=== PATIENT | female | born 1995 | race Caucasian/White ===

== ENCOUNTER → 2016-04-19 | Outpatient (CLI) | payer OTHER ==
[~2016-04-19] MED LIST: AC325T PO; CLC500CT PO; CODE-54 PO; ESCT10T PO; IBUP-792; Ibuprofen PO; MULT-963 PO; NAPR-243 PO; NITR100C3 PO; ONDA8TAB9 PO; PRD20T PO; PREN1TAB71 PO; SUMA25TA3 PO
--- OUTSIDE RECORDS SUMMARY | 2016-04-19 13:17 | XMS REPORT | Continuity of Care Document ---
Author Author [facility] Organization [facility] Address Unknown Phone Unavailable Care Team Providers Care Manager Cosmetics Name Role Phone RACHANA MICHELE DO PCP Insurance Providers Payer Name Policy Number Subscriber Name Relationship [employer] [id number] Dominga Garcia 18 Self / Same As Patient Advance Directives Directive Response Recorded Date/Time Advance Directives No 08/06/15 10:29pm Health Care Power of Oleomargarine Maker No 08/06/15 10:29pm Organ Donor Yes 08/06/15 10:29pm Resuscitation Status Full Code 08/06/15 10:29pm Chief Complaint and Reason for Visit Chief Complaint Ear Problems Reason for Visit Acute headache Facial pain Problems Active Problems Medical Problem Onset Date Status Acute headache Unknown Acute Facial pain Unknown Acute Medications Current Home Medications Medication Dose Units Route Directions Days/Qty Instructions Start Date Sumatriptan Succinate 25 Mg 25 Mg Oral As Directed as needed for Headache 10 Take one at onset of headache. Repeat in 2 hours if not improved. Take only 2 per day 08/07/15 Prednisone 20 Mg 20 Mg Oral Twice A Day 6 08/07/15 Past Home Medications Medication Directions Ordered Status Ibuprofen 400 Mg Tablet, 02/13/09 Discontinued Naproxen 500 Mg Tablet, 1 Each Oral Three Times A Day And Prn 09/29/10 Discontinued Acetaminophen/Codeine Phosphate 1 Tab Tablet, 1 - 2 Tab Oral Q 4-6 Hours as needed 09/29/10 Discontinued Escitalopram Oxalate 10 Mg Tablet, 1 Each Oral Daily 02/14/12 Discontinued Multivitamin 1 Each Tablet, 1 Each Oral 02/14/12 Discontinued Nitrofurantoin Macrocrystals 100 Mg Capsule, 100 Mg Oral Twice A Day Discontinued Ondansetron Hcl 8 Mg/Tab Tab.rapdis, 8 Mg Oral As Needed 02/14/12 Discontinued Vit/Fe Fumarate/Fa 1 Each Tablet, 1 Each Oral Daily 09/15/13 Discontinued Acetaminophen 325 Mg Tab, 325-650 Mg Oral Q 4-6 Hours for Pain 10/21/13 Discontinued Calcium Carbonate 500 Mg Tab.chew, 500-1000 Mg Oral Q 4-6 Hours for Indigestion 10/21/13 Discontinued [Ibuprofen] 600 Mg Tab, 600 Mg Oral Every 6 Hours as needed for Cramps Discontinued Social History Social History Problem Response Recorded Date/Time Alcohol Use Denies Use 08/06/2015 10:29pm Recreational Drug Use No 08/06/2015 10:29pm Recent Foreign Travel No 10/23/2013 10:38am Recent Infectious Disease Exposure No 10/23/2013 10:38am Hospitalization with Isolation Denies 10/25/2013 11:36pm Sexually Transmitted Disease Y Hx chlamydia approx 201108/06/2015 10:29pm Smoking Status Current Everyday Smoker 08/06/2015 10:29pm Do you dip or chew tobacco? No 08/06/2015 10:29pm Query Response Start Date Stop Date Smoking Status Current Everyday Smoker Hospital Discharge Instructions No hospital discharge instructions. Plan of Care Discharge Date 08/07/15 12:54am Disposition 01 HOME, SELF-CARE Condition at Discharge Improved Instructions/Education Provided Cluster Headache (ED) Trigeminal Neuralgia (ED) Prescriptions See Medication Section Referrals RACHANA MICHELE DO - Primary Care Physician Additional Instructions/Education The exact cause of your headache is uncertain at this time but it may be related to cluster headache, migraine, or trigeminal neuralgia. Follow-up with Dr. Michele as soon as possible. If headache is persistent you may need further workup which might include imaging of the head and/or consultation with neurology. If headache rebounds, you may use Imitrex as prescribed and start the prednisone prescription. Complete your antibiotics as prescribed. If symptoms worsen return to care. All discharge instructions reviewed with patient and/or family. Voiced understanding. Functional Status No functional status results. Allergies, Adverse Reactions, Alerts No known allergies. Immunizations No immunization records. Vital Signs Acute Vital Signs Vital Response Date/Time Temperature (Fahrenheit) 98 degrees F (97.6 - 99.5) 08/06/2015 10:29pm Temperature (Calculated Celsius) 36.6696 degrees C (36.4 - 37.5) 08/06/2015 10:29pm Temperature Source Temporal 08/06/2015 10:29pm Pulse Rate (adult) 86 bpm (60 - 90) 08/06/2015 10:29pm Respiratory Rate 16 bpm (12 - 24) 08/06/2015 10:29pm O2 Sat by Pulse Oximetry 99 % (88 - 100) 08/06/2015 10:29pm Blood Pressure 130/75 mm Hg 08/06/2015 10:29pm Blood Pressure Mean 93 mm Hg 08/06/2015 10:29pm Pain Pain Intensity 7 08/07/2015 12:15am Height (Feet) 5 feet 08/06/2015 10:29pm Height (Inches) 9 inches 08/06/2015 10:29pm Height (Calculated Centimeters) 175.792805 cm 08/06/2015 10:29pm Weight (Pounds) 230 pounds 08/06/2015 10:29pm Weight (Ounces) 4.0 oz 08/06/2015 10:29pm Weight (Calculated Grams) 02427.287 gm 08/06/2015 10:29pm Weight (Calculated Kilograms) 104.531499 kilograms 08/06/2015 10:29pm Calculated BMI 26.15 08/06/2015 10:29pm Results No known relevant diagnostic tests, laboratory data and/or discharge summary. Procedures No known history of procedures. Encounters Encounter Location Arrival/Admit Date Discharge/Depart Date Attending Provider Departed Emergency Room [facility] 08/06/15 10:07pm 12/14 12:54am DARCIE MCCLOUD MD Recent Diagnosis
== END ==
LOC: LAB 13:13
PROVIDERS: ATTEND Nurse Practitioner Family
DX: R50.9 Fever, unspecified (principal); R05 Cough; J02.8 Acute pharyngitis due to other specified organisms

== ENCOUNTER → 2016-07-23 | Outpatient (CLI) | payer OTHER ==
--- NOTE | 2016-07-23 16:28 | Diagnostic Imaging Report ---
EXAM: CERVICAL SPINE 3 VIEWS OR LESS INDICATION: Neck pain radiating into bilateral upper extremities. COMPARISON: None. FINDINGS: Straightening of the normal cervical lordosis may be positional. Vertebral body heights are maintained. No substantial degenerative endplate changes or facet arthropathy. Normal soft tissue shadows. No fractures. IMPRESSION: Negative cervical spine radiographs. Dictated by: Dictated on workstation # [id number]
== END ==
LOC: RAD 16:02
PROVIDERS: ATTEND Family Medicine
DX: M54.2 Cervicalgia (principal)
CPT/HCPCS: 72040

== ENCOUNTER 2016-08-11 20:22 | Emergency (ER) | payer OTHER ==
[~2016-08-11] VITALS: Ht 175.3 cm; Wt 108.1 kg
--- NOTE | 2016-08-11 20:41 | ED General ---
General Chief Complaint: Allergic Reaction Stated Complaint: BODY SWELLING HIVES BODY ACHE Nursing Triage Note: c/o hives, patient reports getting steroid shots for this when this started, patient reports pulling a tick off her a couple weeks ago. patient also reports general body aches Nursing Sepsis Screen: No Definite Risk Source of Information: Patient Exam Limitations: No Limitations History of Present Illness Time Seen by Provider: 20:38 Initial Comments To ER with 3-4 days of a diffuse rash, malaise and joint pains. She was seen by [facility] on the day that this began which was 08/08/16 and was given an injection of 2 steroids. Rash was her initial presenting symptom there and was itchy at that time. She states that she went home, improved for a day or so and then the rash recurred. It slightly itchy in her legs but not terribly itchy. She does report diffuse body ache specifically in her joints and most noticeably in the TMJ bilaterally. No fevers. No history of this. No new medications. No recent illnesses, cough, GI symptoms, or sore throat. . She states that she did pull a tick off of her that was stuck to left abdomen about 3 weeks ago. Timing/Duration: 2-3 Days Severity: Moderate Associated Systoms: No Chest Pain, No Cough, No Diaphoresis, No Fever/Chills, Malaise Allergies and Home Medications Allergies Coded Allergies: No Known Drug Allergies (Unverified , 02/13/09) Home Medications No Active Prescriptions or Reported Meds Constitutional: see HPI, No chills, No fever EENTM: see HPI Respiratory: no symptoms reported, No cough Cardiovascular: no symptoms reported Genitourinary: no symptoms reported Musculoskeletal: see HPI, joint pain, No joint swelling Skin: see HPI, rash Psychiatric/Neurological: No Symptoms Reported Hematologic/Lymphatic: No Symptoms Reported Past Iqcbclf-Tbqwvl-Fldpld Hx Patient Social History Alcohol Use: Denies Use Recreational Drug Use: No Smoking Status: Current Everyday Smoker Recent Foreign Travel: No Contact w/Someone Who Travel: No Recent Infectious Disease Expo: No Recent Hopitalizations: No Immunizations Up To Date Tetanus Booster (TDap): More than 5yrs Seasonal Allergies Seasonal Allergies: No Surgeries HX Surgeries: No Surgeries: Tonsillectomy Respiratory Hx Respiratory Disorders: No Cardiovascular Hx Cardiac Disorders: No Neurological Hx Neurological Disorders: No Reproductive System Hx Reproductive Disorders: No (IMPLANTED B.C.) Sexually Transmitted Disease: Yes (Hx chlamydia approx 2011) Female Reproductive Disorders: Denies Genitourinary Hx Genitourinary Disorders: No Gastrointestinal Hx Gastrointestinal Disorders: No Musculoskeletal Hx Musculoskeletal Disorders: Yes ("closed spina bifida") Endocrine Hx Endocrine Disorders: No HEENT HX ENT Disorders: No Cancer Hx Cancer: No Psychosocial Hx Psychiatric Problems: Yes Behavioral Health Disorders: Depression Integumentary HX Skin/Integumentary Disorder: No Blood Transfusions Hx Blood Disorders: No Adverse Reaction to a Blood Tr: No Family Medical History Significant Family History: No Pertinent Family Hx Family Medial History: Alcoholism 19 FATHER (PGM, PGF) 19 MOTHER (Mother's family) Cancer Cancer of colon 19 FATHER (PGF pancreatic, PGM ovarian) Cataract 19 FATHER (PGM) Family history: Arthritis 19 MOTHER Family history: Asthma G8 BROTHER Family history: Osteoporosis 19 MOTHER Family history: Thyroid disorder 19 FATHER (PGM) Headache 19 FATHER (PGF) History of - respiratory disease 19 MOTHER (MGM COPD) History of drug abuse 19 MOTHER (Mother's side) Hypercholesterolemia 19 MOTHER Malignant neoplasm of lung 19 MOTHER (MGF) Psychotic disorder 19 FATHER (PGF) Stroke 19 FATHER (PGF) No Family History of: Abdominal aortic aneurysm Calvin's disease Aphasia Chest pain Congenital heart disease Congestive heart failure Cystic fibrosis Dementia Dysphagia Family history: Allergy Family history: Alzheimer's disease Family history: Breast disease Family history: Cardiovascular disease Family history: Coronary thrombosis Family history: Diabetes mellitus Family history: Gastrointestinal disease Family history: Glaucoma Family history: Hypertension Hearing loss Heart disease Hereditary disease History of - anemia History of - disorder Human immunodeficiency virus (HIV) seropositivity Infertile Kidney disease Myocardial infarction Parkinson's disease Prostate cancer Seizure disorder Tuberculosis Visual impairment Physical Exam Vital Signs Vital Sign - Last 12Hours 08/11/16 20:31 Temp 98.2 Pulse 93 Resp 18 B/P (MAP) 116/75 Pulse Ox 98 Capillary Refill : Less Than 3 Seconds General Appearance: No Apparent Distress, WD/WN Eyes: Bilateral Eye EOMI, Bilateral Eye Normal Inspection, Bilateral Eye PERRL HEENT: PERRL/EOMI, TMs Normal, Normal ENT Inspection, Other (No conjunctivitis. Able to flex chin to chest--no nuchal rigidity) Neck: Full Range of Motion, Normal Inspection Respiratory: Normal Breath Sounds, No Accessory Muscle Use, No Respiratory Distress Cardiovascular: Regular Rate, Rhythm, Normal Peripheral Pulses Gastrointestinal: Normal Bowel Sounds, Non Tender, Soft Extremity: Normal Capillary Refill, Normal Range of Motion Neurologic/Psychiatric: Alert, Oriented x3, Normal Mood/Affect Skin: Rash (diffuse maculopapular blanchable rash to the upper and lower extremities. She does have some degree of this on her torso but not as much as on the extremities (sparing the palms and soles). [id number] on the palms of her hands and no intraoral lesions seen.There are no vesicles or petechaie. ) Laceration Repair : Suture Size: 3-0 Progress/Results/Core Measures Results/Orders Lab Results Laboratory Tests Test 08/11/16 20:30 Range/Units White Blood Count 11.5 H 4.3-11.0 10^3/uL Red Blood Count 4.90 4.35-5.85 10^6/uL Hemoglobin 14.3 11.5-16.0 G/DL Hematocrit 43 35-52 % Mean Corpuscular Volume 88 80-99 FL Mean Corpuscular Hemoglobin 29 25-34 PG Mean Corpuscular Hemoglobin Concent 33 32-36 G/DL Red Cell Distribution Width 13.6 10.0-14.5 % Platelet Count 189 130-400 10^3/uL Mean Platelet Volume 11.3 H 7.4-10.4 FL Neutrophils (%) (Auto) 80 H 42-75 % Lymphocytes (%) (Auto) 15 12-44 % Monocytes (%) (Auto) 3 0-12 % Eosinophils (%) (Auto) 2 0-10 % Basophils (%) (Auto) 0 0-10 % Neutrophils # (Auto) 9.2 H 1.8-7.8 X 10^3 Lymphocytes # (Auto) 1.7 1.0-4.0 X 10^3 Monocytes # (Auto) 0.3 0.0-1.0 X 10^3 Eosinophils # (Auto) 0.3 0.0-0.3 10^3/uL Basophils # (Auto) 0.0 0.0-0.1 10^3/uL Erythrocyte Sedimentation Rate 2 0-20 MM/HR Sodium Level 140 135-145 MMOL/L Potassium Level 3.8 3.6-5.0 MMOL/L Chloride Level 111 H 98-107 MMOL/L Carbon Dioxide Level 19 L 21-32 MMOL/L Anion Gap 10 5-14 MMOL/L Blood Urea Nitrogen 19 H 7-18 MG/DL Creatinine 0.83 0.60-1.30 MG/DL Estimat Glomerular Filtration Rate > 60 BUN/Creatinine Ratio 23 Glucose Level 116 H 70-105 MG/DL Calcium Level 8.7 8.5-10.1 MG/DL Total Bilirubin 0.3 0.1-1.0 MG/DL Aspartate Amino Transf (AST/SGOT) 19 5-34 U/L Alanine Aminotransferase (ALT/SGPT) 16 0-55 U/L Alkaline Phosphatase 48 40-136 U/L C-Reactive Protein High Sensitivity 3.54 H 0.00-0.50 MG/DL Total Protein 6.0 L 6.4-8.2 G/DL Albumin 4.0 3.2-4.5 G/DL Thyroid Stimulating Hormone (TSH) 2.26 0.35-4.94 UIU/ML Free Thyroxine 0.81 0.70-1.48 NG/DL Serum Test, Qualitative NEGATIVE NEGATIVE My Orders Orders - PRESTON OJEDA APRN Cbc With Automated Diff (08/11/16 20:36) Hs C Reactive Protein (08/11/16 20:36) Erythrocyte Sedimentation Rate (08/11/16 20:36) Ua Culture If Indicated (08/11/16 20:36) Comprehensive Metabolic Panel (08/11/16 20:36) Saline Lock/Iv-Start (08/11/16 20:36) Tick Panel With Lyme Eia (08/11/16 20:36) Methylprednisolone Sod Succ (Solu-Medrol (08/11/16 20:45) Famotidine Injection (Pepcid Injection) (08/11/16 20:45) Ketorolac Injection (Toradol Injection) (08/11/16 20:45) Diphenhydramine Injection (Benadryl Inje (08/11/16 20:45) Ns Iv 500 Ml (Sodium Chloride 0.9%) (08/11/16 20:45) Hcg,Qualitative Serum (08/11/16 20:36) Thyroid Stimulating Hormone (08/11/16 20:36) Free T4 (Free Thyroxine) (08/11/16 20:36) Doxycycline Hyclate Tablet (Vibramycin T (08/11/16 21:30) Medications Given in ED Current Medications Medications Dose Ordered Sig/Yony Route Start Time Stop Time Status Last Admin Dose Admin Diphenhydramine HCl 25 mg ONCE ONCE IVP 08/11/16 20:45 08/11/16 20:46 DC 08/11/16 20:48 25 MG Famotidine 20 mg ONCE ONCE IVP 08/11/16 20:45 08/11/16 20:46 DC 08/11/16 20:48 20 MG Ketorolac Tromethamine 30 mg ONCE ONCE IVP 08/11/16 20:45 08/11/16 20:46 DC 08/11/16 20:48 30 MG Methylprednisolone Sodium Succinate 125 mg ONCE ONCE IVP 08/11/16 20:45 08/11/16 20:46 DC 08/11/16 20:48 125 MG Vital Signs/I&O Vital Sign - Last 12Hours 08/11/16 20:31 Temp 98.2 Pulse 93 Resp 18 B/P (MAP) 116/75 Pulse Ox 98 Blood Pressure Mean: 89 Departure Communication Progress Notes 1-I did discuss with Dr. Michele. She agrees with treating for possible tickborne illness until proven otherwise in addition to a steroid taper. She will see the patient follow-up. Impression Impression: Primary Impression: Rash and nonspecific skin eruption Disposition: 01 HOME, SELF-CARE Condition: Stable Departure-Patient Inst. Decision time for Depature: 21:32 Referrals: RACHANA MICHELE DO (PCP/Family) Primary Care Physician Patient Instructions: Skin Rash (DC) Add. Discharge Instructions: 1. Rash is very nonspecific. You should follow-up with Dr. Michele for further evaluation later this week 2. Return to ER for any worsening symptoms such as worsening pains or high fevers. 3. Take the steroids and the doxycycline as directed. While you are on the doxycycline should avoid direct sunlight and tanning beds as these could worsen your rash and cause a new rash. All discharge instructions reviewed with patient and/or family. Voiced understanding. Scripts Prednisone (Prednisone) 5 Mg Tablet 5 MG PO UD, #55 TAB 50 mg by mouth on day 1 then reduced by one tablet daily until gone. Prov: PRESTON OJEDA PERL SOFTWARE ENGINEER 08/11/16 Doxycycline Hyclate (Doxycycline Hyclate) 100 Mg Tablet 100 MG PO BID, #20 TAB Prov: PRESTON OJEDA APRN 08/11/16 Work/School Note: Work Release Form Date Seen in the Emergency Department: August 11, 2016 Return to Work: August 13, 2016 Restrictions: No Restrictions Copy Copies To 1: RACHANA MICHELE PETER J APRN August 11, 2016 20:41
[2016-08-11 20:43] LABS: BASOPHILS % (AUTO) 0 % (0-10); EOSINOPHILS # (AUTO) 0.3 10^3/uL (0.0-0.3); EOSINOPHILS % (AUTO) 2 % (0-10); LYMPHOCYTES # (AUTO) 1.7 X 10^3 (1.0-4.0); LYMPHOCYTES % (AUTO) 15 % (12-44); MEAN CORPUSCULAR HEMOGLOBIN 29 PG (25-34); MEAN CORPUSCULAR HGB CONC 33 G/DL (32-36); MEAN CORPUSCULAR VOLUME 88 FL (80-99); MEAN PLATELET VOLUME 11.3 FL (7.4-10.4); MONOCYTES # (AUTO) 0.3 X 10^3 (0.0-1.0); MONOCYTES % (AUTO) 3 % (0-12); NEUTROPHILS # (AUTO) 9.2 X 10^3 (1.8-7.8); NEUTROPHILS % (AUTO) 80 % (42-75); PLATELET COUNT 189 10^3/uL (130-400); RED CELL DISTRIBUTION WIDTH 13.6 % (10.0-14.5); WHITE BLOOD COUNT 11.5 10^3/uL (4.3-11.0)
[2016-08-11] MEDS ORDERED: FAMOTIDINE 20MG/2ML IV (PEPCID) IVP ONE (20:45)
[2016-08-11] MEDS ORDERED: NS IV 500 ML 500 ML IV SCH (20:45)
[2016-08-11] MEDS ORDERED: KETOROLAC 30 MG/ML VIAL IVP ONE (20:45)
[2016-08-11] MEDS ORDERED: diphenhydrAMINE 50 MG/ML INJ (BENADRYL) IVP ONE (20:45)
[2016-08-11] MEDS ORDERED: methylPREDNISolone 125 MG (Solu-MEDROL) VIAL IVP ONE (20:45)
[2016-08-11 21:01] LABS: ALANINE AMINOTRANSFERASE 16 U/L (0-55); ANION GAP 10 MMOL/L (5-14); ASPARTATE AMINO TRANSFERASE 19 U/L (5-34); BILIRUBIN,TOTAL 0.3 MG/DL (0.1-1.0); BLOOD UREA NITROGEN 19 MG/DL (7-18); BUN/CREATININE RATIO 23; CALCIUM 8.7 MG/DL (8.5-10.1); CARBON DIOXIDE 19 MMOL/L (21-32); CHLORIDE 111 MMOL/L (98-107); CREATININE SERUM 0.83 MG/DL (0.60-1.30); GFR ESTIMATED > 60; GLUCOSE 116 MG/DL (70-105); POTASSIUM 3.8 MMOL/L (3.6-5.0); SODIUM 140 MMOL/L (135-145); hs C REACTIVE PROTEIN 3.54 MG/DL (0.00-0.50)
[2016-08-11 21:08] LABS: ERYTHROCYTE SEDIMENTATION RATE 2 MM/HR (0-20)
[2016-08-11 21:21] LABS: THYROID STIMULATING HORMONE 2.26 UIU/ML (0.35-4.94)
[2016-08-11] MEDS ORDERED: DOXYCYCLINE 100 MG (VIBRAMYCIN) TABLET PO SCH (21:30)
[2016-08-11] MEDS ORDERED: DOXY100T2 PO (21:35)
[2016-08-11] MEDS ORDERED: PRED5TAB PO (21:35)
[2016-08-11 21:39] VITALS: BP 100/61
[2016-08-13 13:58] LABS: EHRLICHIA CHAFFEENSIS G ABY <1:16 (<1:16)
[2016-08-13 15:20] LABS: IGG ROCKY MOUNTAIN SPOTTED FEV <1:16 (<1:16); IGM ROCKY MOUNTAIN SPOTTED FEV <1:10 (<1:10); TULAREMIA ANTIBODY <1:20
[2016-08-14 07:29] LABS: LYME AB INTERP Negative (Negative)
== END 2016-08-11 21:40 | disposition home or self-care (01) ==
LOC: EDUNIT# 20:22 → ER 20:25
DX: R21 Rash and other nonspecific skin eruption (principal); F17.210 Nicotine dependence, cigarettes, uncomplicated; M79.1 Myalgia
CPT/HCPCS: 36415; 80053; 84439; 84443; 84703; 85025; 85652; 86141; 86618; 86666; 86668; 86757; 96361; 96374; 96375

== ENCOUNTER 2017-02-10 21:59 | Emergency (ER) | payer OTHER ==
[~2017-02-10] VITALS: Ht 175.3 cm; Wt 95.3 kg
[~2017-02-10 21:59] MED LIST changes: +DOXY100T2 PO; +PRED5TAB PO
--- NOTE | 2017-02-10 23:15 | ED GU-Female ---
General Chief Complaint: -Female Stated Complaint: 5 WEEKS ,LOWER ABD CRAMPING,LIGHT BLEEDING Nursing Triage Note: PT REPORTS SHE TOOK 4 TESTS BETWEEN AND FRIDAY OF LAST WEEK. PT REPORTS 2 OUT THE 4 RESULTED POSITIVE. PT REPORTS STARTED HAVING VAGINAL BLEEDING 2 DAYS AGO AND PELVIC/ABDOMINAL CRAMPING TODAY. Nursing Sepsis Screen: No Definite Risk Source: patient History of Present Illness Time seen by provider: 22:40 Initial Comments PT ARRIVES VIA POV PT STATES SHE IS 5 WEEKS --LMP 01/06/17 STATES SHE HAD "2 POSITIVE AND 2 NEGATIVE TESTS " ON TUESDAY 02/06 AND WEDNESDAY 02/07 STATES SHE HAS HAD LIGHT SPOTTING SINCE YESTERDAY--SMALL AMOUNT OF BROWN TO RED BLOOD ON TISSUE WITH WIPING. OTHERWISE NO BLEEDING--HAS NOT HAD TO USE ANY PADS HAS HAD SLIGHT LOWER ABDOMINAL CRAMPING NO URINARY SYMPTOMS NO FEVER MILD NAUSEA, OCCASIONAL VOMITING. FEELS BLOATED NO OB CARE AT THIS TIME AND HAS NOT ATTEMPTED TO MAKE APPOINTMENT WITH [facility]-- DR. NUNN WAS OB DR. WITH LAST PT STATES THIS IS HER 2ND -- AB 0--, NO COMPLICATIONS HAD IMPLANON REMOVED 05/2016--NO CONTROL SINCE THEN. PERIODS HAVE BEEN FAIRLY REGULAR SINCE THEN PCP: DR. SHOOK Allergies and Home Medications Allergies Coded Allergies: No Known Drug Allergies (Unverified , 02/13/09) Home Medications No Active Prescriptions or Reported Meds Constitutional: no symptoms reported Respiratory: no symptoms reported Cardiovascular: no symptoms reported Gastrointestinal: see HPI, nausea, vomiting Genitourinary: see HPI : Yes LMP: Jan 06, 2017 Musculoskeletal: no symptoms reported Skin: no symptoms reported Psychiatric/Neurological: No Symptoms Reported Endocrine: No Symptoms Reported Hematologic/Lymphatic: No Symptoms Reported Past Sqnevua-Izikrv-Ydzepf Hx Patient Social History Alcohol Use: Occasionally Uses Recreational Drug Use: No Smoking Status: Current Everyday Smoker (1/2-1 PPD) Recent Foreign Travel: No Contact w/Someone Who Travel: No Recent Infectious Disease Expo: No Recent Hopitalizations: No Physical Abuse: No Sexual Abuse: No Mistreated: No Fear: No Immunizations Up To Date Tetanus Booster (TDap): More than 5yrs Seasonal Allergies Seasonal Allergies: No Surgeries History of Surgeries: Yes (WISDOM TEETH REMOVED) Surgeries: Tonsillectomy Respiratory History of Respiratory Disorde: No Cardiovascular History of Cardiac Disorders: No Neurological History of Neurological Disord: No Reproductive System Hx : 1 Hx Para: 1 Hx Reproductive Disorders: No Sexually Transmitted Disease: Yes (Hx chlamydia approx 2011) Female Reproductive Disorders: Denies Genitourinary History of Genitourinary Disor: No Gastrointestinal History of Gastrointestinal Di: No Musculoskeletal History of Musculoskeletal Dis: Yes ("closed spina bifida") Endocrine History of Endocrine Disorders: No HEENT History of HEENT Disorders: No Cancer History of Cancer: No Psychosocial History of Psychiatric Problem: Yes Behavioral Health Disorders: Depression Suicide Risk Score: 0 Integumentary History of Skin or Integumenta: No Blood Transfusions History of Blood Disorders: No Adverse Reaction to a Blood Tr: No Family Medical History Family Medial History: Alcoholism 19 FATHER (PGM, PGF) 19 MOTHER (Mother's family) Cancer Cancer of colon 19 FATHER (PGF pancreatic, PGM ovarian) Cataract 19 FATHER (PGM) Family history: Arthritis 19 MOTHER Family history: Asthma G8 BROTHER Family history: Osteoporosis 19 MOTHER Family history: Thyroid disorder 19 FATHER (PGM) Headache 19 FATHER (PGF) History of - respiratory disease 19 MOTHER (MGM COPD) History of drug abuse 19 MOTHER (Mother's side) Hypercholesterolemia 19 MOTHER Malignant neoplasm of lung 19 MOTHER (MGF) Psychotic disorder 19 FATHER (PGF) Stroke 19 FATHER (PGF) No Family History of: Abdominal aortic aneurysm [place]'s disease Aphasia Chest pain Congenital heart disease Congestive heart failure Cystic fibrosis Dementia Dysphagia Family history: Allergy Family history: Alzheimer's disease Family history: Breast disease Family history: Cardiovascular disease Family history: Coronary thrombosis Family history: Diabetes mellitus Family history: Gastrointestinal disease Family history: Glaucoma Family history: Hypertension Hearing loss Heart disease Hereditary disease History of - anemia History of - disorder Human immunodeficiency virus (HIV) seropositivity Infertile Kidney disease Myocardial infarction Parkinson's disease Prostate cancer Seizure disorder Tuberculosis Visual impairment Physical Exam Vital Signs Vital Sign - Last 12Hours 02/10/17 22:32 Temp 98.1 Pulse 77 Resp 20 B/P (MAP) 129/74 Pulse Ox 97 Capillary Refill : Less Than 3 Seconds General Appearance: WD/WN, no apparent distress, other (SMILING, WALKS UPRIGHT AND MOVES QUICKLY WITHOUT DIFFICULTY) Cardiovascular: regular rate, rhythm, no murmur Respiratory: normal breath sounds Gastrointestinal: normal bowel sounds, non tender, soft Back: no CVA tenderness Extremities: normal inspection, no pedal edema Neurologic/Psychiatric: capacity management specialist II-XII nml as tested, no motor/sensory deficits, alert, normal mood/affect, oriented x 3 Skin: normal color, warm/dry Laceration Repair : Suture Size: 3-0 Progress/Results/Core Measures Results/Orders Lab Results Laboratory Tests Test 02/10/17 22:50 Range/Units White Blood Count 9.7 4.3-11.0 10^3/uL Red Blood Count 4.99 4.35-5.85 10^6/uL Hemoglobin 14.6 11.5-16.0 G/DL Hematocrit 43 35-52 % Mean Corpuscular Volume 86 80-99 FL Mean Corpuscular Hemoglobin 29 25-34 PG Mean Corpuscular Hemoglobin Concent 34 32-36 G/DL Red Cell Distribution Width 12.9 10.0-14.5 % Platelet Count 216 130-400 10^3/uL Mean Platelet Volume 11.6 H 7.4-10.4 FL Neutrophils (%) (Auto) 51 42-75 % Lymphocytes (%) (Auto) 41 12-44 % Monocytes (%) (Auto) 6 0-12 % Eosinophils (%) (Auto) 2 0-10 % Basophils (%) (Auto) 0 0-10 % Neutrophils # (Auto) 4.9 1.8-7.8 X 10^3 Lymphocytes # (Auto) 4.0 1.0-4.0 X 10^3 Monocytes # (Auto) 0.6 0.0-1.0 X 10^3 Eosinophils # (Auto) 0.2 0.0-0.3 10^3/uL Basophils # (Auto) 0.0 0.0-0.1 10^3/uL Sodium Level 141 135-145 MMOL/L Potassium Level 3.6 3.6-5.0 MMOL/L Chloride Level 109 H 98-107 MMOL/L Carbon Dioxide Level 22 21-32 MMOL/L Anion Gap 10 5-14 MMOL/L Blood Urea Nitrogen 9 7-18 MG/DL Creatinine 0.77 0.60-1.30 MG/DL Estimat Glomerular Filtration Rate > 60 BUN/Creatinine Ratio 12 Glucose Level 98 70-105 MG/DL Calcium Level 9.3 8.5-10.1 MG/DL Human Chorionic Gonadotropin, Quant < 5 <5 MIU/ML My Orders Orders - NAHID TENA DO Basic Metabolic Panel (02/10/17 22:44) Cbc With Automated Diff (02/10/17 22:44) Hcg,Quantitative (02/10/17 22:44) Us Ob Transvaginal [id number] (02/10/17 22:44) Vital Signs/I&O Vital Sign - Last 12Hours 02/10/17 22:32 Temp 98.1 Pulse 77 Resp 20 B/P (MAP) 129/74 Pulse Ox 97 Blood Pressure Mean: 92 Progress Note : Progress Note NO BLEEDING OR PAIN DURING ER STAY Diagnostic Imaging Comments ULTRASOUND--NORMAL, THIN ENDOMETRIUM, NO EVIDENCE OF . PER TECH REPORT @ 0008 Reviewed: Reviewed by Me Departure Impression Impression: Primary Impression: Irregular menstrual bleeding Additional Impression: Negative test Disposition: HOME, SELF-CARE Condition: Stable Departure-Patient Inst. Referrals: RACHANA SHOOK DO (PCP/Family) Primary Care Physician Patient Instructions: Absent or Irregular Periods Add. Discharge Instructions: FOLLOW UP WITH DR. SHOOK IF SYMPTOMS PERSIST All discharge instructions reviewed with patient and/or family. Voiced understanding. Scripts No Active Prescriptions or Reported Meds NAHID TENA DO Feb 10, 2017 23:15
[2017-02-10 23:27] LABS: BASOPHILS % (AUTO) 0 % (0-10); EOSINOPHILS # (AUTO) 0.2 10^3/uL (0.0-0.3); EOSINOPHILS % (AUTO) 2 % (0-10); LYMPHOCYTES % (AUTO) 41 % (12-44); MEAN CORPUSCULAR HEMOGLOBIN 29 PG (25-34); MEAN CORPUSCULAR HGB CONC 34 G/DL (32-36); MEAN CORPUSCULAR VOLUME 86 FL (80-99); MEAN PLATELET VOLUME 11.6 FL (7.4-10.4); MONOCYTES # (AUTO) 0.6 X 10^3 (0.0-1.0); MONOCYTES % (AUTO) 6 % (0-12); NEUTROPHILS # (AUTO) 4.9 X 10^3 (1.8-7.8); NEUTROPHILS % (AUTO) 51 % (42-75); PLATELET COUNT 216 10^3/uL (130-400); RED BLOOD COUNT 4.99 10^6/uL (4.35-5.85); RED CELL DISTRIBUTION WIDTH 12.9 % (10.0-14.5); WHITE BLOOD COUNT 9.7 10^3/uL (4.3-11.0)
[2017-02-10 23:50] LABS: ANION GAP 10 MMOL/L (5-14); BLOOD UREA NITROGEN 9 MG/DL (7-18); BUN/CREATININE RATIO 12; CALCIUM 9.3 MG/DL (8.5-10.1); CARBON DIOXIDE 22 MMOL/L (21-32); CHLORIDE 109 MMOL/L (98-107); CREATININE SERUM 0.77 MG/DL (0.60-1.30); GFR ESTIMATED > 60; GLUCOSE 98 MG/DL (70-105); POTASSIUM 3.6 MMOL/L (3.6-5.0); SODIUM 141 MMOL/L (135-145)
[2017-02-11 00:44] VITALS: BP 129/74
--- NOTE | 2017-02-11 06:46 | Diagnostic Imaging Report ---
EXAM: US OB TRANSVAGINAL 25594 INDICATION: Vaginal bleeding. Positive test. COMPARISON: None. FINDINGS: Normal echogenicity of the uterus which measures 7.2 x 5.7 x 3.5 cm. Endometrium measures 0.2 cm in thickness. No endometrial mass, fluid collection or evidence of IUP. Right ovary is not seen. Left ovary measures 4.2 x 3.3 x 2.9 cm and demonstrates normal flow by color Doppler. No adnexal mass or fluid collection. No fluid in the pelvis. IMPRESSION: No sonographic evidence of an IUP. No adnexal mass or fluid collection. Dictated by: Dictated on workstation # [id number]
== END 2017-02-11 00:44 | disposition home or self-care (01) ==
LOC: EDUNIT# 21:59 → ER 22:03
DX: N92.5 Other specified irregular menstruation (principal); F32.9 Major depressive disorder, single episode, unspecified; F17.210 Nicotine dependence, cigarettes, uncomplicated; Z86.19 Personal history of other infectious and parasitic diseases; Z90.89 Acquired absence of other organs; Z98.818 Other dental procedure status; Z32.02 Encounter for pregnancy test, result negative
CPT/HCPCS: 36415; 76817; 80048; 84702; 85025; 99283

== ENCOUNTER → 2017-04-03 | Outpatient (CLI) | payer OTHER ==
[2017-04-03 08:31] LABS: BASOPHILS % (AUTO) 0 % (0-10); EOSINOPHILS # (AUTO) 0.1 10^3/uL (0.0-0.3); EOSINOPHILS % (AUTO) 2 % (0-10); HEMATOCRIT 45 % (35-52); LYMPHOCYTES # (AUTO) 2.1 X 10^3 (1.0-4.0); LYMPHOCYTES % (AUTO) 28 % (12-44); MEAN CORPUSCULAR HEMOGLOBIN 29 PG (25-34); MEAN CORPUSCULAR HGB CONC 34 G/DL (32-36); MEAN CORPUSCULAR VOLUME 87 FL (80-99); MEAN PLATELET VOLUME 10.8 FL (7.4-10.4); MONOCYTES # (AUTO) 0.5 X 10^3 (0.0-1.0); MONOCYTES % (AUTO) 7 % (0-12); NEUTROPHILS # (AUTO) 4.7 X 10^3 (1.8-7.8); NEUTROPHILS % (AUTO) 63 % (42-75); PLATELET COUNT 212 10^3/uL (130-400); RED BLOOD COUNT 5.16 10^6/uL (4.35-5.85); WHITE BLOOD COUNT 7.4 10^3/uL (4.3-11.0)
[2017-04-03 09:04] LABS: ALANINE AMINOTRANSFERASE 31 U/L (0-55); ALBUMIN 4.2 GM/DL (3.2-4.5); ALKALINE PHOSPHATASE 45 U/L (40-136); BILIRUBIN,TOTAL 0.4 MG/DL (0.1-1.0); BUN/CREATININE RATIO 18; CARBON DIOXIDE 20 MMOL/L (21-32); CHLORIDE 109 MMOL/L (98-107); ERYTHROCYTE SEDIMENTATION RATE 1 MM/HR (0-20); GFR ESTIMATED > 60; GLUCOSE 101 MG/DL (70-105); POTASSIUM 4.3 MMOL/L (3.6-5.0); SODIUM 139 MMOL/L (135-145); TOTAL PROTEIN 6.8 GM/DL (6.4-8.2); URIC ACID 5.3 MG/DL (2.6-7.2)
[2017-04-03 09:25] LABS: FREE T4 (FREE THYROXINE) 0.82 NG/DL (0.70-1.48)
== END ==
LOC: LAB 08:12
PROVIDERS: ATTEND Family Medicine
DX: Z00.00 Encounter for general adult medical examination without abnormal findings (principal); R53.83 Other fatigue; R20.0 Anesthesia of skin; R63.5 Abnormal weight gain; E55.9 Vitamin D deficiency, unspecified; M79.1 Myalgia; M25.50 Pain in unspecified joint
CPT/HCPCS: 36415; 80053; 82306; 83036; 84439; 84443; 84550; 85025; 85652; 86038; 86060; 86141; 86430

== ENCOUNTER 2017-09-03 05:32 | Outpatient (CLI) | payer OTHER ==
[~2017-09-03] VITALS: Ht 172.7 cm; Wt 102.5 kg
[2017-09-08] MEDS ORDERED: OXYC-197 PO (13:34)
== END 2017-09-03 11:23 ==
LOC: PREOP 05:32
PROVIDERS: ATTEND Obstetrics & Gynecology
DX: Z01.818 Encounter for other preprocedural examination (principal)

== ENCOUNTER 2017-09-08 11:03 | Day surgery (SDC) | payer OTHER ==
[~2017-09-08] VITALS: Ht 172.7 cm; Wt 102.5 kg
[2017-09-08 11:10] VITALS: BP 112/69
[2017-09-08] MEDS ORDERED: ceFAZolin INJECTION 1,000 MG in NS (IVPB) 50 ML IV ONE (11:15)
[2017-09-08] MEDS: LACTATED RINGERS 1,000 ML IV PRN ×2 (11:25→14:00)
[2017-09-08 11:45] LABS: BASOPHILS % (AUTO) 0 % (0-10); EOSINOPHILS # (AUTO) 0.3 10^3/uL (0.0-0.3); EOSINOPHILS % (AUTO) 2 % (0-10); HEMATOCRIT 46 % (35-52); HEMOGLOBIN 15.6 G/DL (11.5-16.0); LYMPHOCYTES # (AUTO) 3.2 X 10^3 (1.0-4.0); LYMPHOCYTES % (AUTO) 27 % (12-44); MEAN CORPUSCULAR HEMOGLOBIN 31 PG (25-34); MEAN CORPUSCULAR HGB CONC 34 G/DL (32-36); MEAN CORPUSCULAR VOLUME 90 FL (80-99); MEAN PLATELET VOLUME 11.1 FL (7.4-10.4); MONOCYTES # (AUTO) 0.5 X 10^3 (0.0-1.0); MONOCYTES % (AUTO) 4 % (0-12); NEUTROPHILS # (AUTO) 7.9 X 10^3 (1.8-7.8); NEUTROPHILS % (AUTO) 66 % (42-75); PLATELET COUNT 236 10^3/uL (130-400); RED BLOOD COUNT 5.12 10^6/uL (4.35-5.85); RED CELL DISTRIBUTION WIDTH 13.6 % (10.0-14.5); WHITE BLOOD COUNT 11.9 10^3/uL (4.3-11.0)
[2017-09-08] MEDS ORDERED: MIDAZOLAM 2 MG/2 ML (VERSED) VIAL ONE (12:02)
[2017-09-08] MEDS ORDERED: fentaNYL INJECTION 100 MCG/2 ML AMP ONE ×2 (12:05→14:13)
[2017-09-08] MEDS ORDERED: BUP/EPI 0.5% 1:200,000 (SENSORCAINE) 30 ML VIAL ONE (12:15)
--- NOTE | 2017-09-08 13:31 | Progress Note-Pre Operative ---
Pre-Operative Progress Note H&P Reviewed The H&P was reviewed, patient examined and no changes noted. Date Seen by Provider: Sep 08, 2017 Time Seen by Provider: 13:31 Date H&P Reviewed: Sep 08, 2017 Time H&P Reviewed: 13:31 Pre-Operative Diagnosis: CHANDLER GRIMALDO MD Sep 08, 2017 1:31 pm
--- NOTE | 2017-09-08 13:32 | Progress Note-Post Operative ---
Post-Operative Progess Note Surgeon (s)/Counter Supply Worker (s) Surgeon CHANDLER AMBROSIO MD Counter Supply Worker: Roxanna Farah Pre-Operative Diagnosis CPP Post-Operative Diagnosis Same with endometriosis/adhesions/appendicitis Procedure & Operative Findings Date of Procedure 09/08/17 Procedure Performed/Findings Laparoscopic treatment of endometriosis laparoscopic adhesiolysis laparoscopic appendectomy Anesthesia Type GETA Estimated Blood Loss Estimated blood loss (mL): min Specimens/Packing Specimens Removed Appendix Packing: none CHANDLER AMBROSIO MD Sep 08, 2017 13:31
[2017-09-08] MEDS ORDERED: OXYC-197 PO (13:34)
--- NOTE | 2017-09-08 13:35 | Discharge Instructions ---
Discharge Instructions Discharge Medications New, Converted or Re-Newed RX: RX on Chart Patient Instructions Patient Instructions: As directed Return to The Hospital For: As directed Activity & Diet Discharge Diet: No Restrictions Activity as Tolerated: No Orders-Post D/C & Referrals Follow Up Appt: Call to make follow up appt. for patient in 1 weeks. Activity: Rest for 24 hours, than as tolerated. Wound Care: May remove Band-Aid tomorrow. Replace as desired. Keep incisions clean and dry. Wash daily with soap and water. Please call in RX to patient pharmacy. Diet: As tolerated-Clear Liquids only if nauseated. may shower or tub bathe as desired. No driving for 24 hours, no alcoholic beverages for 24 hours, and nothing per vagina (no tampons, douching, or intercoUrse) for 2 weeks. Patient to return to the clinic as soon as possible for: Temperature greater than 101F, Severe Pain, Foul discharge from incision or vagina, Excessive Bleeding (more than a period). CHANDLER AMBROSIO MD Sep 08, 2017 1:35 pm
[2017-09-08] MEDS ORDERED: proPOfol 200 MG/20 ML (DIPRIVAN) VIAL IV ONE (14:20)
[2017-09-08] MEDS ORDERED: KETOROLAC 30 MG/ML VIAL ONE (14:20)
[2017-09-08] MEDS ORDERED: ROCURONIUM 10 MG/ML 5 ML SYRINGE IV ONE (14:20)
[2017-09-08] MEDS ORDERED: GLYCOPYRROLATE 0.2 MG/ML (ROBINUL) 2 ML VIAL ONE (14:20)
[2017-09-08] MEDS ORDERED: LIDOCAINE PF 2% 5 ML (XYLOCAINE) VIAL ONE (14:20)
[2017-09-08] MEDS ORDERED: SEVOFLURANE (ULTANE) 15 ML INHAL SOLN ONE (14:20)
[2017-09-08] MEDS ORDERED: NEOSTIGMINE 1 MG/ML 5 ML SYRINGE ONE (14:20)
[2017-09-08] MEDS ORDERED: ONDANSETRON 4 MG/2 ML (SDV) Z0FRAN IVP PRN (14:45)
[2017-09-08] MEDS ORDERED: PROMETHAZINE INJ 25 MG/ML (PHENERGAN) AMP IVP PRN (14:45)
[2017-09-08] MEDS ORDERED: HYDROmorphone 1 MG/ML (DILAUDID) 1 ML SYRINGE IV PRN (14:45)
--- NOTE | 2017-09-08 14:47 | Anesthesia-General Post-Op ---
General Patient Condition Mental Status/LOC: Same as Preop Cardiovascular: Satisfactory Nausea/Vomiting: Absent Respiratory: Satisfactory Pain: Controlled Complications: Absent Post Op Complications Complications None Follow Up Care/Instructions Patient Instructions None needed. Anesthesia/Patient Condition Patient Condition Patient is doing well, no complaints, stable vital signs, no apparent adverse anesthesia problems. LIBRADO PAYNE DO Sep 08, 2017 14:47
[2017-09-08] MEDS ORDERED: ONDANSETRON 4 MG/2 ML (SDV) Z0FRAN ONE (14:48)
[2017-09-08] MEDS ORDERED: morphine INJ 10 MG/ML 1ML (SYR OR VIAL) ONE (14:49)
[2017-09-08] MEDS: morphine INJ 10 MG/ML 1ML (SYR OR VIAL) IVP PRN ×2 (14:50→14:55)
[2017-09-08 15:30] VITALS: BP 103/63
[2017-09-08 16:00] VITALS: BP 118/70
[2017-09-08] MEDS ORDERED: oxyCODONE/APAP 5/325MG (PERCOCET 5) TABLET PO ONE (16:00)
[2017-09-08 16:30] VITALS: BP 122/77
[2017-09-08 16:50] VITALS: BP 122/77
--- NOTE | 2017-09-09 01:34 | OPERATIVE REPORT ---
DATE OF SERVICE: 09/08/2017 PREOPERATIVE DIAGNOSIS: Chronic pelvic pain. POSTOPERATIVE DIAGNOSES: Chronic pelvic pain with endometriosis, pelvic adhesions and likely some degree of appendicitis. OPERATIVE PROCEDURE: Diagnostic laparoscopy converted to pelviscopy for adhesiolysis, destruction of endometriosis implants, and laparoscopic appendectomy. OPERATIVE DESCRIPTION: With the patient in the supine position under satisfactory general anesthesia, she was repositioned in dorsal lithotomy position in the [facility] and prepped and draped in the usual fashion for abdominal and vaginal surgery. The urinary bladder was drained via straight catheter. A weighted speculum was placed in the posterior fornix of the vagina, cervix exposed and grasped anteriorly with single tooth tenaculum. Uterus was sounded to 9 cm uterine sound. The cervix was then serially dilated with Leo dilators to accommodate a uterine manipulator, which was placed and the bulb filled with 4 mL of air. The tenaculum and speculum were removed. The patient was brought in low dorsal lithotomy position. A 5 mm incision was made in the patient's left upper quadrant, 12 mm incision in the inferior margin of the umbilicus and a 5 mm incision suprapubically. All incision sites were infiltrated with 0.25% Marcaine with epinephrine prior to incision. Veress needle was placed through the left upper quadrant incision. Correct placement confirmed with water drop test. The abdomen was insufflated with 2.4 liters of carbon dioxide and then Veress needle was removed and a 5 mm laparoscopic port placed. The patient was placed in Trendelenburg, allowing the bowel to spill out of the pelvis. There were some adhesions to the left pelvic brim that obscured some visibility over to the tube and ovary on the left. The right tube and ovary were clearly visible as was the uterus. The laparoscope was rotated. The appendix was identified. A 5 mm port was placed suprapubically. The appendix was evaluated. It did seem to be indurated and injected in the distal 25% or so. There were some lesions that could be endometriosis versus some degree of infection on the distal portion of the appendix. Decision was made to go ahead with appendectomy concurrent with the balance of the procedures; therefore, a 12 mm port was placed through the umbilical incision. Initially, it had been a 5 mm incision and it was extended to 12 mm for this port. Attention was first turned to the adhesions on the left pelvic brim. These were taken down for a careful meticulous dissection both sharply and bluntly and with electrocautery. This freed the sigmoid and exposed the pelvic brim completely and both ureters seen to peristalt. There were endometriosis implants in the ovarian fossa. There was a pair of powder burn appearing lesions. These were touched with electrocautery to destroy them. There was endometriosis implants on the distal fallopian tube and there was some clubbing of the distal portion of the fallopian tube as well. The endosalpingiosis implants were destroyed with electrocautery. Both ovaries appeared normal. There were follicular cysts, but nothing concerning. Laparoscope was brought into the cul-de-sac. There was no endometriosis implants there. The uterus was a little bit mottled in appearance consistent with probably some degree of endometriosis in the prajapati of the uterus, but nothing overt untreatable at this point. There were no lesions in the anterior cul-de-sac. The right tube and ovary were normal and they were left alone. Attention was now turned to the appendix. The appendix was grasped and elevated. The mesoappendix was perforated close to the base of the appendix and then an Endo-KELLE was placed across the base of the appendix and fired. A second firing of that instrument across the mesoappendix was divided that structure from its attachments. It was placed in an Endobag and brought out through the umbilical port. The stump of the appendix was copiously irrigated and then treated with several drops of Betadine solution. The pelvis itself was irrigated and the irrigant aspirated out as well. With no remaining abnormal pathology, no bleeding, the procedure was terminated. The operative instruments were removed under direct vision. The operative ports were also removed under direct vision. No bleeding was noted at the port site. The abdomen was evacuated of insufflating gas in the process of removing the ports. The skin incisions were closed with 3-0 nylon sutures. The fascia at the infraumbilical incision was closed with [id number] suture of 2-0 Vicryl. Sponge and needle counts were correct at the end of procedure. The uterine manipulator bulb was drained. The instruments were removed from the vagina. Speculum was replaced in the vagina and cervix examined for hemostasis, which was complete. With sponge and needle counts now complete and estimated blood loss minimal, the patient was uneventfully awakened from general anesthesia and transferred to recovery room in stable condition with plans for discharge home. Job ID: [id number] DocumentID: [id number] Dictated Date: 09/08/2017 14:24:43 Mold Stamper Date: 09/08/2017 19:32:29 Dictated By: CHANDLER AMBROSIO MD MTDD
== END 2017-09-08 16:50 | disposition home or self-care (01) ==
LOC: SDC 11:03
PROVIDERS: ATTEND Obstetrics & Gynecology
DX: N83.8 Other noninflammatory disorders of ovary, fallopian tube and broad ligament (principal); K38.0 Hyperplasia of appendix; N80.2 Endometriosis of fallopian tube; N80.1 Endometriosis of ovary; F32.9 Major depressive disorder, single episode, unspecified; G47.33 Obstructive sleep apnea (adult) (pediatric); F17.210 Nicotine dependence, cigarettes, uncomplicated
CPT/HCPCS: 36415; 84703; 85025; 87081; 88304; 88305